=== PATIENT | female | born 1965 | race Caucasian/White ===

== ENCOUNTER 2019-06-06 10:04 | Emergency (ER) | payer OTHER, SELFPAY ==
--- NOTE | 2019-06-06 10:30 | EDPHYS ---
Physician Documentation [facility] Name: Chela Magana Age: 53 yrs Sex: Female : 1965 Arrival Date: 06/06/2019 Time: 10:07 Bed 6 Private MD: ED Physician Amado Mcgrath HPI: 06/06 10:26 This 53 yrs old Female presents to ER via Ambulatory with complaints of Cough.jmm 10:26 The patient or guardian reports cough, described as moderate. Onset: The jm symptoms/episode began/occurred gradually, 2 week(s) ago. Modifying factors: The symptoms are alleviated by nothing, the symptoms are aggravated by nothing. Associated signs and symptoms: Pertinent positives: sore throat, Pertinent negatives: fever. This is a 53 year old female with a history of htn that presents ot the ED with complaints of cough beginning 1 week ago. Patient states having sinus congestion ongoing for 2 weeks. Patient denies fever but complains of body aches and chills. has similar symptoms. . 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 - Coronavirus screen:: The patient has NOT traveled to [place] in the past 14 days. The patient has NOT had contact with known/suspected case of Coronavirus? Proceed with normal triage procedures. - Social history:: Smoking status: unknown. - Ebola Screening: : No symptoms or risks identified at this time. ROS: 10:26 Constitutional: Positive for body aches, chills. jmm 10:26 ENT: Positive for sore throat. 10:26 Respiratory: Positive for cough. 10:26 All other systems are negative. Exam: 10:26 Constitutional: This is a well developed, well nourished patient who is awake, alert, jmm and in no acute distress. Head/Face: atraumatic. Eyes: EOMI, no conjunctival erythema appreciated 10:26 Neck: Trachea midline, Supple Chest/axilla: Normal chest wall appearance and motion. 10:26 Abdomen/GI: Non distended, soft Back: Normal ROM Skin: General appearance color normal MS/ Extremity: Moves all extremities, no obvious deformities appreciated, no edema noted to the lower extremities Neuro: Awake and alert, normal gait Psych: Behavior is normal, Mood is normal, Patient is cooperative and pleasant 10:26 ENT: TM's: are normal, Posterior pharynx: erythema, that is mild, post nasal drip. 10:26 Cardiovascular: Rate: normal, Rhythm: regular, Pulses: no pulse deficits are appreciated. 10:26 Respiratory: the patient does not display signs of respiratory distress, Respirations: normal, Breath sounds: are clear throughout. Vital Signs: 10:19 BP 142 / 84; Pulse 84; Resp 16; Temp 98.7; Pulse Ox 99% ; Weight 88.45 kg; Height 5 ft. bp 2 in. (157.48 cm); 10:49 BP 130 / 73; Pulse 81; Resp 17; Temp 98; Pulse Ox 97% ; bp 10:19 Body Mass Index 35.67 (88.45 kg, 157.48 cm) bp MDM: 10:25 Patient medically screened. [facility] 10:28 Data reviewed: vital signs, nurses notes. Counseling: I had a detailed discussion with daniel the patient and/or guardian regarding: the historical points, exam findings, and any diagnostic results supporting the discharge/admit diagnosis, the need for outpatient follow up, to return to the emergency department if symptoms worsen or persist or if there are any questions or concerns that arise at home. ED course: Patient is alert and non toxic in appearance in the ED. No signs of resp distress. Most likely viral syndrome. patient advised to follow up with pcp and otherwise given strict return precautions. patient understood and agrees with the plan of care. . Administered Medications: 10:35 Drug: Decadron 10 mg Route: IM; Site: right gluteus; bp 10:48 Follow up: Response: No adverse reaction bp Disposition: 11:01 Co-signature as Attending Physician, Amado Mcgrath MD. rn Disposition: 06/06/19 10:29 Discharged to Home. Impression: Acute upper respiratory infection, unspecified. - Condition is Stable. - Discharge Instructions: Upper Respiratory Infection, Adult. - Prescriptions for Bromfed DM 2- 30-10 mg/5 mL Oral syrup - take 10 milliliter by ORAL route every 4 hours; 1 bottle. Prednisone 20 mg Oral Tablet - take 3 tablet by ORAL route once daily for 5 days; 15 tablet. - Medication Reconciliation Form, Thank You Letter, Antibiotic Education, Prescription Opioid Use, Work release form form. - Follow up: Private Physician; When: 2 - 3 days; Reason: Recheck today's complaints, Continuance of care, Re-evaluation by your physician. Signatures: José Abraham PA PA jmm Nieto, Roman, MD MD rn DonnaMohamud RN RN bp Corrections: (The following items were deleted from the chart) 10:50 10:29 06/06/2019 10:29 Discharged to Home. Impression: Acute upper respiratory bp infection, unspecified. Condition is Stable. Forms are Medication Reconciliation Form, Thank You Letter, Antibiotic Education, Prescription Opioid Use. Follow up: Private Physician; When: 2 - 3 days; Reason: Recheck today's complaints, Continuance of care, Re-evaluation by your physician. daniel
--- NOTE | 2019-06-06 10:30 | ER ---
Nurse's Notes [facility] Name: Chela Magana Age: 53 yrs Sex: Female : 1965 Arrival Date: 06/06/2019 Time: 10:07 Bed 6 Private MD: Diagnosis: Acute upper respiratory infection, unspecified Presentation: 06/06 10:18 Presenting complaint: Patient states: COUGH, COLD, CONGESTION x2 WK. Transition of bp care: patient was not received from another setting of care. Onset of symptoms is unknown. Risk Assessment: Do you want to hurt yourself or someone else? Patient reports no desire to harm self or others. Initial Sepsis Screen: Does the patient meet any 2 criteria? No. Patient's initial sepsis screen is negative. Does the patient have a suspected source of infection? No. Patient's initial sepsis screen is negative. Care prior to arrival: None. 10:18 Method Of Arrival: Ambulatory bp 10:18 Acuity: NESS 4 bp Triage Assessment: 10:19 General: Appears in no apparent distress. comfortable, obese, Behavior is calm, bp cooperative, appropriate for age. Pain: Denies pain. EENT: No deficits noted. Neuro: No deficits noted. Cardiovascular: No deficits noted. Respiratory: Airway is patent Respiratory effort is even, unlabored, Respiratory pattern is regular, symmetrical. Respiratory: Reports cough that is. GI: No signs and/or symptoms were reported involving the gastrointestinal system. : No signs and/or symptoms were reported regarding the genitourinary system. Derm: No deficits noted. Musculoskeletal: No deficits noted. 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 - Coronavirus screen:: The patient has NOT traveled to [place] in the past 14 days. The patient has NOT had contact with known/suspected case of Coronavirus? Proceed with normal triage procedures. - Social history:: Smoking status: unknown. - Ebola Screening: : No symptoms or risks identified at this time. Screenin:21 Abuse screen: Denies threats or abuse. Denies injuries from another. Nutritional bp screening: No deficits noted. Tuberculosis screening: No symptoms or risk factors identified. Fall Risk None identified. Assessment: 10:21 General: SEE TRIAGE NOTE. bp 10:49 Reassessment: PT D/C HOME AMBULATORY, DX WITH ACUTE URI. bp Vital Signs: 10:19 BP 142 / 84; Pulse 84; Resp 16; Temp 98.7; Pulse Ox 99% ; Weight 88.45 kg; Height 5 ft. bp 2 in. (157.48 cm); 10:49 BP 130 / 73; Pulse 81; Resp 17; Temp 98; Pulse Ox 97% ; bp 10:19 Body Mass Index 35.67 (88.45 kg, 157.48 cm) bp ED Course: 10:07 Patient arrived in ED. as 10:09 José Abraham PA is PHCP. daniel 10:09 Amado Mcgrath MD is Attending Physician. [facility] 10:18 Mohamud Thompson, RN is Primary Nurse. bp 10:19 Triage completed. bp 10:19 Arm band placed on. bp 10:21 Patient has correct armband on for positive identification. Bed in low position. Call bp light in reach. Side rails up X2. 10:49 No provider procedures requiring assistance completed. Patient did not have IV access bp during this emergency room visit. Administered Medications: 10:35 Drug: Decadron 10 mg Route: IM; Site: right gluteus; bp 10:48 Follow up: Response: No adverse reaction bp Outcome: 10:29 Discharge ordered by . jmm 10:49 Discharged to home ambulatory. bp 10:49 Condition: stable 10:49 Discharge instructions given to patient, Instructed on discharge instructions, follow up and referral plans. medication usage, Demonstrated understanding of instructions, follow-up care, medications, Prescriptions given X 3. 10:50 Patient left the ED. bp Signatures: José Abraham PA PA Maki Ochoa as Mohamud Thompson, RN RN bp
[2019-06-06] MEDS ORDERED: dexAMETHasone 4 MG/ML VIAL ONE (10:42)
[2019-06-06 11:18] VITALS: BP 130/73; TEMP 98; O2SAT 97
== END 2019-06-06 10:50 | disposition home or self-care (01) ==
LOC: ER 10:04
DX: J06.9 Acute upper respiratory infection, unspecified (principal); I10 Essential (primary) hypertension; Z88.5 Allergy status to narcotic agent
CPT/HCPCS: 96372; 99283

== ENCOUNTER 2020-01-19 18:57 | Emergency (ER) | payer OTHER, SELFPAY ==
--- NOTE | 2020-01-19 19:37 | ER ---
Nurse's Notes [facility] Name: Chela Magana Age: 54 yrs Sex: Female : 1965 Arrival Date: 01/19/2020 Time: 18:59 Bed 23 Private MD: Jimmie Trimble H Diagnosis: Allergic rhinitis, unspecified Presentation: 01/18 19:19 Chief complaint: Patient states: Allergy symptoms x 5 days. Watery and itchy eyes, ca1 sneezing, runny nose, nasal congestion. States, "my doctor gives me cortisone shot every year and it will make me feel better". Coronavirus screen: Client denies travel out of the [place] in the last 14 days. congestion, runny nose, Client presents with at least one sign or symptom that may indicate coronavirus-19. Standard/surgical mask placed on the client. Provider contacted for isolation considerations. Ebola Screen: Patient negative for fever greater than or equal to 101.5 degrees Fahrenheit, and additional compatible Ebola Virus Disease symptoms Patient denies exposure to infectious person. Patient denies travel to an Ebola-affected area in the 21 days before illness onset. No symptoms or risks identified at this time. Initial Sepsis Screen: Does the patient meet any 2 criteria? No. Patient's initial sepsis screen is negative. Does the patient have a suspected source of infection? No. Patient's initial sepsis screen is negative. Risk Assessment: Do you want to hurt yourself or someone else? Patient reports no desire to harm self or others. Onset of symptoms was January 19, 2020. 19:19 Method Of Arrival: Ambulatory ca1 19:19 Acuity: NESS 4 ca1 19:40 Onset: The symptoms/episode began/occurred gradually. Anaphylaxis evaluation, no signs sg or symptoms of anaphylaxis were noted. 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 - Social history:: Smoking status: Patient/guardian denies using tobacco, Stopped _ months ago 2. Screenin:31 Abuse screen: Denies threats or abuse. Denies injuries from another. Nutritional ca1 screening: No deficits noted. Tuberculosis screening: No symptoms or risk factors identified. Fall Risk None identified. Assessment: 19:31 General: Appears in no apparent distress. comfortable, Behavior is calm, cooperative, ca1 appropriate for age. Pain: Denies pain. Neuro: Level of Consciousness is awake, alert, obeys commands, Oriented to person, place, time, situation. Respiratory: Airway is patent Respiratory effort is even, unlabored, Breath sounds are clear bilaterally. EENT: Reports nasal congestion nasal discharge that is watery. Derm: Skin is intact, is healthy with good turgor, Skin is pink, warm \\T\\ dry. Musculoskeletal: Circulation, motion, and sensation intact. Capillary refill < 3 seconds. Vital Signs: 19:19 BP 143 / 104; Pulse 84; Resp 18 S; Temp 97.4(TE); Pulse Ox 99% on R/A; Weight 84.37 kg ca1 (R); Height 5 ft. 2 in. (157.48 cm) (R); 19:31 BP 146 / 99; ca1 19:19 Body Mass Index 34.02 (84.37 kg, 157.48 cm) ca1 ED Course: 18:59 Patient arrived in ED. ag5 18:59 Jimmie Trimble DO is Private Physician. ag5 19:20 Griffin Fournier MD is Attending Physician. tw4 19:21 Triage completed. ca1 19:23 Arm band placed on right wrist. ca1 19:31 Patient has correct armband on for positive identification. ca1 19:35 Svetlana Ni, LALO is Primary Nurse. ca1 19:36 Jimmie Trimble DO is Referral Physician. tw4 19:40 No provider procedures requiring assistance completed. Patient did not have IV access sg during this emergency room visit. Administered Medications: 19:35 Drug: SOLU-Medrol 60 mg Route: IM; Site: right gluteus; ca1 Outcome: 19:37 Discharge ordered by . tw4 19:40 Discharged to home ambulatory, with family. sg 19:40 Condition: good 19:40 Discharge instructions given to patient, family, Instructed on discharge instructions, follow up and referral plans. medication usage, safety practices, Demonstrated understanding of instructions, follow-up care, medications, Prescriptions given X 2. 19:46 Patient left the ED. iw Signatures: Fernie Guzman RN RN Zainab Horta RN RN Griffin Fournier MD MD tw4 Svetlana Ni RN RN ca1 Angie, Jessy ag5 Corrections: (The following items were deleted from the chart) 19:25 19:19 Chief complaint: Patient states: Allergy symptoms x 5 days. Watery and itchy ca1 eyes, sneezing, runny nose, nasal congestion, ca1 19:47 16:40 Discharged to home ambulatory, with family, [facility] 16:40 Condition: good [facility] :47 16:40 Discharge instructions given to patient, family, Instructed on discharge instructions, follow up and referral plans. medication usage, safety practices, Demonstrated understanding of instructions, follow-up care, medications, Prescriptions given X 2, iw
--- NOTE | 2020-01-19 19:37 | EDPHYS ---
Physician Documentation [facility] Name: Chela Magana Age: 54 yrs Sex: Female : 1965 Arrival Date: 01/19/2020 Time: 18:59 Bed 23 Private MD: Jimmie Trimble H ED Physician Griffin Fournier HPI: 01/19 06:57 This 54 yrs old Female presents to ER via Ambulatory with complaints of tw4 Allergy Symptoms. 06:57 The patient or guardian reports watery eyes itching. Onset: The symptoms/episode tw4 began/occurred 1 week(s) ago. Severity of symptoms: At their worst the symptoms were moderate, in the emergency department the symptoms are unchanged. Modifying factors: The symptoms are alleviated by nothing, the symptoms are aggravated by nothing. The patient has not experienced similar symptoms in the past. 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 - Social history:: Smoking status: Patient/guardian denies using tobacco, Stopped _ months ago 2. ROS: 01/19 06:57 Constitutional: Negative for fever, chills, and weight loss. tw4 Eyes: Negative for injury, pain, redness, and discharge, Cardiovascular: Negative for chest pain, palpitations, and edema, Respiratory: Negative for shortness of breath, cough, wheezing, and pleuritic chest pain, Abdomen/GI: Negative for abdominal pain, nausea, vomiting, diarrhea, and constipation, Back: Negative for injury and pain, : Negative for injury, bleeding, discharge, and swelling, MS/Extremity: Negative for injury and deformity, Skin: Negative for injury, rash, and discoloration. ENT: Positive for nasal discharge, rhinorrhea. Exam: 06:57 Constitutional: This is a well developed, well nourished patient who is awake, alert, tw4 and in no acute distress. Head/Face: Normocephalic, atraumatic. Chest/axilla: Normal chest wall appearance and motion. Nontender with no deformity. No lesions are appreciated. Cardiovascular: Regular rate and rhythm with a normal S1 and S2. No gallops, murmurs, or rubs. Normal PMI, no JVD. No pulse deficits. Respiratory: Lungs have equal breath sounds bilaterally, clear to auscultation and percussion. No rales, rhonchi or wheezes noted. No increased work of breathing, no retractions or nasal flaring. Abdomen/GI: Soft, non-tender, with normal bowel sounds. No distension or tympany. No guarding or rebound. No evidence of tenderness throughout. Back: No spinal tenderness. No costovertebral tenderness. Full range of motion. Skin: Warm, dry with normal turgor. Normal color with no rashes, no lesions, and no evidence of cellulitis. MS/ Extremity: Pulses equal, no cyanosis. Neurovascular intact. Full, normal range of motion. Neuro: Awake and alert, GCS 15, oriented to person, place, time, and situation. Cranial nerves II-XII grossly intact. Motor strength 5/5 in all extremities. Sensory grossly intact. Cerebellar exam normal. Normal gait. Vital Signs: 01/18 19:19 BP 143 / 104; Pulse 84; Resp 18 S; Temp 97.4(TE); Pulse Ox 99% on R/A; Weight 84.37 kg ca1 (R); Height 5 ft. 2 in. (157.48 cm) (R); 19:31 BP 146 / 99; ca1 19:19 Body Mass Index 34.02 (84.37 kg, 157.48 cm) ca1 MDM: 19:34 Patient medically screened. tw4 01/19 06:57 Differential Diagnosis: Obstructed Airway Bronchitis Influenza Upper Respiratory tw4 Infection. Data reviewed: vital signs, nurses notes. Data interpreted: Pulse oximetry:. Counseling: I had a detailed discussion with the patient and/or guardian regarding: the historical points, exam findings, and any diagnostic results supporting the discharge/admit diagnosis. Special discussion: I discussed with the patient/guardian in detail that at this point there is no indication for admission to the hospital. It is understood, however, that if the symptoms persist or worsen the patient needs to return immediately for re-evaluation. Administered Medications: 01/18 19:35 Drug: SOLU-Medrol 60 mg Route: IM; Site: right gluteus; ca1 Disposition: 01/19/20 19:37 Discharged to Home. Impression: Allergic rhinitis, unspecified. - Condition is Stable. - Discharge Instructions: Allergies, Adult, Nasal Allergies, Allergies, [id number]. - Prescriptions for Sylvie- D 12 Hour 60-120 mg Oral Tablet Sustained Release 12 hr - take 1 tablet by ORAL route every 12 hours As needed; 30 tablet. Medrol (Anival) 4 mg Oral Tablets, Dose Pack - take 1 tablet by ORAL route as directed - follow package instructions; 1 packet. - Medication Reconciliation Form, Thank You Letter, Antibiotic Education, Prescription Opioid Use form. - Follow up: Jimmie Trimble DO; When: Upon discharge from the Emergency Department; Reason: Recheck today's complaints, Continuance of care, Re-evaluation by your physician. - Problem is new. - Symptoms have improved. Signatures: Zainab Horta RN RN iw Griffin Fournier MD MD tw4 Svetlana Ni RN RN ca1 Corrections: (The following items were deleted from the chart) 19:46 19:37 01/19/2020 19:37 Discharged to Home. Impression: Allergic rhinitis, unspecified. iw Condition is Stable. Forms are Medication Reconciliation Form, Thank You Letter, Antibiotic Education, Prescription Opioid Use. Follow up: Jimmie Trimble; When: Upon discharge from the Emergency Department; Reason: Recheck today's complaints, Continuance of care, Re-evaluation by your physician. Problem is new. Symptoms have improved. tw4
[2020-01-19 20:22] VITALS: TEMP 97.4; O2SAT 99
[2020-01-19 20:24] VITALS: BP 146/99
--- OUTSIDE RECORDS SUMMARY | 2020-01-20 22:34 | XMS REPORT | Continuity of Care Document ---
:1965 Author Organization [employer] Care Team Providers Name Role Phone [employer] Unavailable Un available Problems Problem Status Onset Classification Date Comments Sourc e Date Reported ANA CARPAL Active [facility] 7 [facility] Medications No Data Provided for This Section Allergies, Adverse Reactions, Alerts No Known Medication Allergies Immunizations No Data Provided for This Section Results No Data Provided for This Section Pathology Reports No Data Provided for This Section Diagnostic Reports No Data Provided for This Section Consultation Notes No Data Provided for This Section Discharge Summaries No Data Provided for This Section History and Physicals No Data Provided for This Section Vital Signs No Data Provided for This Section Encounters Location Location Encounter Encounter Reason Attending ADM DC Stat us Source Details Type Number For Provider Date Date Visit [facility] OP Therapy [id number] Brian 11/12 12/12 [facility] Patients /2016 [facility] Procedures No Data Provided for This Section Assessment and Plan No Data Provided for This Section Plan of Care No Data Provided for This Section Social History Social History Date Source No data available for this 12/12/2016 [facility] section Family History No Data Provided for This Section Advance Directives No Data Provided for This Section Functional Status No Data Provided for This Section
== END 2020-01-19 19:46 | disposition home or self-care (01) ==
LOC: ER 18:57
DX: J30.9 Allergic rhinitis, unspecified (principal); I10 Essential (primary) hypertension; Z88.5 Allergy status to narcotic agent; Z87.891 Personal history of nicotine dependence
CPT/HCPCS: 96372; 99283

== ENCOUNTER 2020-03-22 17:04 | Observation (INO) | payer OTHER ==
[2020-03-22 20:45] LABS: Absolute Lymphocytes (CBC) 2.9 K/uL (0.7-4.9); Basophils % 0.6 % (0-1.3); Lymphocytes % 30.2 % (15.3-44.8); MPV 8.1 fL (7.6-11.3); RBC Red Blood Cell Count 4.82 M/uL (3.86-4.86)
--- NOTE | 2020-03-22 20:49 | RAD REPORT ---
EXAM DESCRIPTION: RAD - Chest Single View - 03/22/2020 8:05 pm CLINICAL HISTORY: CHEST PAIN Chest pain. COMPARISON: Abdomen Pelvis W Contrast dated 11/19/2019; Abdomen Pelvis W Contrast dated 10/17/2019; Abdomen Pelvis W Contrast dated 09/27/2019; Abdomen Pelvis W Contrast dated 08/10/2019No comparison s FINDINGS: Portable technique limits examination quality. The lungs are grossly clear. The heart is normal in size. No displaced fractures. IMPRESSION: No acute intrathoracic process suspected.
[2020-03-22 21:13] LABS: Bilirubin Direct 0.2 mg/dL (0-0.2); Bilirubin Total 0.7 mg/dL (0.2-1.0); Potassium 3.8 mmol/L (3.5-5.1); Protein, Total 7.6 g/dL (6.4-8.2)
--- OUTSIDE RECORDS SUMMARY | 2020-03-22 21:23 | XMS REPORT | Continuity of Care Document ---
:1965 Author Organization [employer] Care Team Providers Name Role Phone [employer] Unavailable Un available Problems Problem Status Onset Classification Date Comments Sourc e Date Reported ANA CARPAL Active [facility] Medications No Data Provided for This Section [...] Type Number For Provider Date Date Visit [facility] OP Therapy [id number] Brian 11/12 12/12 [facility] Patients /2016 [facility] Procedures No Data Provided for This Section Assessment and Plan No Data Provided for This Section Plan of Care No Data Provided for This Section Social History Social History Date Source No data available for this 12/12/2016 [facility] section Family History No Data Provided for This Section Advance Directives No Data Provided for This Section Functional Status No Data Provided for This Section
--- NOTE | 2020-03-22 21:37 | EDPHYS ---
Physician Documentation [facility] Name: Chela Magana Age: 54 yrs Sex: Female : 1965 Arrival Date: 03/22/2020 Time: 17:06 Bed 20 Private MD: ED Physician Amado Mcgrath HPI: 03/22 19:35 This 54 yrs old Female presents to ER via Ambulatory with complaints of Chest rn Pain. 19:35 The patient or guardian reports chest pain that is located primarily in the substernal rn area. Onset: 6 hour(s) ago. The pain radiates to Associated signs and symptoms: Pertinent negatives: abdominal pain, headache, shortness of breath, syncope, vomiting. The chest pain is described as aching, a heaviness. Duration: The patient or guardian reports multiple episodes, that are intermittent. Modifying factors: The symptoms are alleviated by nothing. the symptoms are aggravated by nothing. Severity of pain: At its worst the pain was moderate in the emergency department the pain has improved. The patient has experienced a previous episode. The patient has not recently seen a physician. Reports at work, chest heaviness when walking, moderate for 20-25 min, then got better, + radiation to neck and back, got better, now coming back. Has had chest pain before, but no evaluation. No abd pain/nausea/vomiting/diarrhea. No trauma. Does not feel ill. No cough.. Historical: - Allergies: 17:25 Codeine; iw - Home Meds: 17:25 valsartan oral oral once daily [Active]; iw - PMHx: 17:25 Hypertension; iw - PSHx: 17:25 Cholecystectomy; iw - Immunization history:: Adult Immunizations not up to date. - Social history:: Smoking status: Patient/guardian denies using tobacco, Stopped _ months ago 5. - Family history:: not pertinent. - Hospitalizations: : No recent hospitalization is reported. ROS: 19:35 Constitutional: Negative for fever, chills, and weight loss, Eyes: Negative for injury, rn pain, redness, and discharge, Neck: Negative for injury, pain, and swelling, Cardiovascular: Negative for palpitations, and edema, Respiratory: Negative for shortness of breath, cough, wheezing, and pleuritic chest pain, Abdomen/GI: Negative for abdominal pain, nausea, vomiting, diarrhea, and constipation, Back: Negative for injury MS/Extremity: Negative for injury and deformity, Skin: Negative for injury, rash, and discoloration, Neuro: Negative for headache, weakness, numbness, tingling, and seizure. Exam: 19:35 Constitutional: This is a well developed, well nourished patient who is awake, alert, rn and in no acute distress. Head/Face: Normocephalic, atraumatic. Cardiovascular: Regular rate and rhythm. No pulse deficits. Respiratory: No increased work of breathing, no retractions or nasal flaring. Abdomen/GI: soft, non-tender, neg escamilla Skin: Warm, dry MS/ Extremity: Pulses equal, no cyanosis. Equal circumference. Neuro: Awake and alert, GCS 15 Vital Signs: 17:22 BP 132 / 88; Pulse 79; Resp 16; Temp 97.8; Pulse Ox 99% on R/A; Weight 84.37 kg; Height iw 5 ft. 2 in. (157.48 cm); Pain 1/10; 19:45 Pulse 82; Resp 18; Pulse Ox 99% ; aj1 20:24 BP 111 / 67; Pulse 80; Resp 18; Pulse Ox 98% on R/A; aj1 21:06 BP 113 / 68; Pulse 81; Resp 15; Pulse Ox 98% on R/A; aj1 22:10 BP 115 / 69; Pulse 77; Resp 18; Pulse Ox 99% on R/A; aj1 23:30 BP 125 / 87; Pulse 82; Resp 18; Pulse Ox 100% on R/A; aj1 12 04:41 BP 129 / 78; Pulse 70; Resp 20; Temp 99.0(TE); Pulse Ox 99% ; Pain 0/10; ds4 03/22 17:22 Body Mass Index 34.02 (84.37 kg, 157.48 cm) iw MDM: 03/22 19:27 Patient medically screened. rn 21:35 Differential diagnosis: acute myocardial infarction, acute pericarditis, anxiety, rn coronary artery disease chest wall pain, costochondritis, gastroesophageal reflux disease (GERD), pleurisy, pneumothorax, stable angina, unstable angina. The patient was given aspirin in the Emergency Department. Data reviewed: vital signs, nurses notes, lab test result(s), EKG, radiologic studies, plain films, and as a result, I will admit patient. Counseling: I had a detailed discussion with the patient and/or guardian regarding: the historical points, exam findings, and any diagnostic results supporting the discharge/admit diagnosis, lab results, radiology results, the need for further work-up and treatment in the hospital. Response to treatment: the patient's symptoms have mildly improved after treatment, and as a result, I will admit patient. Admission orders: after a detailed discussion of the patient's condition and case, the admit orders are written by me. ED course: Trop neg, no ischemia on ECG, no cardiac w/u, will admit for cardiac w/u. Aspirin given in ED.. 03/22 19:34 Order name: Basic Metabolic Panel; Complete Time: 21:42 rn 03/22 19:34 Order name: CBC with Diff rn 03/22 19:34 Order name: LFT's rn 03/22 19:34 Order name: NT PRO-BNP rn 03/22 19:34 Order name: Troponin (emerg Dept Use Only) rn 03/22 20:53 Order name: CBC with Automated Diff; Complete Time: 21:01 [facility] 03/22 21:13 Order name: Liver (Hepatic) Function; Complete Time: 21:42 [facility] 03/22 21:13 Order name: NT PRO-BNP; Complete Time: 21:42 [facility] 03/22 21:16 Order name: Troponin (Emerg Dept Use Only); Complete Time: 21:42 [facility] 03/23 03:52 Order name: Troponin I [facility] 03/23 04:00 Order name: Basic Metabolic Panel [facility] 03/23 04:00 Order name: Lipid Profile [facility] 03/23 04:00 Order name: T4 Free [facility] 03/23 04:00 Order name: Magnesium [facility] 03/22 19:34 Order name: XRAY Chest (1 view); Complete Time: 20:51 rn 03/22 19:34 Order name: EKG; Complete Time: 19:35 rn 03/22 19:34 Order name: Cardiac monitoring; Complete Time: 20:00 rn 03/22 19:34 Order name: EKG - Nurse/Tech; Complete Time: 20:00 rn 03/22 19:34 Order name: IV Saline Lock; Complete Time: 20:23 rn 03/22 19:34 Order name: Labs collected and sent; Complete Time: 20:23 rn 03/22 19:34 Order name: O2 Per Protocol; Complete Time: 20:00 rn 03/22 19:34 Order name: O2 Sat Monitoring; Complete Time: 20:01 rn 03/23 04:00 Order name: Thyroid Stimulating Hormone [facility] 03/23 04:04 Order name: CBC with Automated Diff EDMS Administered Medications: 21:44 Drug: Aspirin Chewable Tablet 324 mg Route: PO; aj1 21:44 Drug: Nitroglycerin 0.4 mg Route: Sublingual; aj1 Disposition: 03/22/20 21:37 Hospitalization ordered by Garrick Romero for Observation. Preliminary diagnosis is Chest pain, unspecified. - Bed requested for Telemetry/MedSurg (observation). - Status is Observation. ph - Condition is Stable. - Problem is new. - Symptoms have improved. Signatures: Dispatcher [employer] EDMS Mirlande Parham RN RN aj1 Zainab Horta RN RN iw Amado Mcgrath MD MD rn Lasagna, Tonya, RN RN tl1 Stephanie Whitten RN RN ph Corrections: (The following items were deleted from the chart) 23:05 21:37 Hospitalization Ordered by Garrick Romero DO for Observation. Preliminary tl1 diagnosis is Chest pain, unspecified. Bed requested for Telemetry/MedSurg (observation). Status is Observation. Condition is Stable. Problem is new. Symptoms have improved. rn 03/23 06:15 12 23:05 03/22/2020 21:37 Hospitalization Ordered by Garrick Romero DO for tl1 Observation. Preliminary diagnosis is Chest pain, unspecified. Bed requested for [facility] ER HOLD. Status is Observation. Condition is Stable. Problem is new. Symptoms have improved. tl1 03/23 07:49 06:15 03/22/2020 21:37 Hospitalization Ordered by Garrick Romero DO for Observation. ph Preliminary diagnosis is Chest pain, unspecified. Bed requested for Telemetry/MedSurg (observation). Status is Observation. Condition is Stable. Problem is new. Symptoms have improved. tl1
--- NOTE | 2020-03-22 21:37 | ER ---
Nurse's Notes [facility] Name: Chela Magana Age: 54 yrs Sex: Female : 1965 Arrival Date: 03/22/2020 Time: 17:06 Bed 20 Private MD: Diagnosis: Chest pain, unspecified Presentation: 03/22 17:22 Chief complaint: Patient states: midsternal chest pain started around 130 today , went iw all the way through my back and up side of neck, still having dull pain but was very intense for about 20-25 minutes, no cardiac hx , denies fever, cough, or SOB, no nausea or vomiting. Coronavirus screen: At this time, the client does not indicate any symptoms associated with coronavirus-19. Ebola Screen: Patient negative for fever greater than or equal to 101.5 degrees Fahrenheit, and additional compatible Ebola Virus Disease symptoms Patient denies exposure to infectious person. Patient denies travel to an Ebola-affected area in the 21 days before illness onset. No symptoms or risks identified at this time. Initial Sepsis Screen: Does the patient meet any 2 criteria? No. Patient's initial sepsis screen is negative. Does the patient have a suspected source of infection? No. Patient's initial sepsis screen is negative. Risk Assessment: Do you want to hurt yourself or someone else? Patient reports no desire to harm self or others. Onset of symptoms was March 22, 2020. 17:22 Method Of Arrival: Ambulatory iw 17:22 Acuity: NESS 3 iw Historical: - Allergies: 17:25 Codeine; iw - Home Meds: 17:25 valsartan oral oral once daily [Active]; iw - PMHx: 17:25 Hypertension; iw - PSHx: 17:25 Cholecystectomy; iw - Immunization history:: Adult Immunizations not up to date. - Social history:: Smoking status: Patient/guardian denies using tobacco, Stopped _ months ago 5. - Family history:: not pertinent. - Hospitalizations: : No recent hospitalization is reported. Screenin:46 Abuse screen: Denies threats or abuse. Denies injuries from another. Nutritional aj1 screening: No deficits noted. Tuberculosis screening: No symptoms or risk factors identified. Fall Risk No fall in past 12 months (0 pts). No secondary diagnosis (0 pts). IV access (20 points). Ambulatory Aid- None/Bed Rest/Nurse Assist (0 pts). Gait- Normal/Bed Rest/Wheelchair (0 pts) Mental Status- Oriented to own ability (0 pts). Total Sommer Fall Scale indicates No Risk (0-24 pts). Assessment: 19:45 General: Appears in no apparent distress. uncomfortable, Behavior is calm, cooperative, aj1 appropriate for age. Pain: Complains of pain in mid-sternal area Pain radiates to back Pain currently is 7 out of 10 on a pain scale. Pain began 6 hours ago. Neuro: Level of Consciousness is awake, alert, obeys commands, Oriented to person, place, time, situation. Cardiovascular: Reports chest pain, Denies diaphoresis, palpitations, shortness of breath, syncope, Heart tones S1 S2 present Patient's skin is warm and dry. Rhythm is sinus rhythm. Respiratory: Airway is patent Respiratory effort is even, unlabored, Respiratory pattern is regular, symmetrical, Breath sounds are clear bilaterally. GI: No signs and/or symptoms were reported involving the gastrointestinal system. : No signs and/or symptoms were reported regarding the genitourinary system. EENT: No signs and/or symptoms were reported regarding the EENT system. Derm: No signs and/or symptoms reported regarding the dermatologic system. Skin is pink, warm \T\ dry. normal. Musculoskeletal: No signs and/or symptoms reported regarding the musculoskeletal system. Circulation, motion, and sensation intact. 20:24 Reassessment: Patient appears in no apparent distress at this time. No changes from aj1 previously documented assessment. Patient and/or family updated on plan of care and expected duration. Pain level reassessed. Patient is alert, oriented x 3, equal unlabored respirations, skin warm/dry/pink. 21:06 Reassessment: Patient appears in no apparent distress at this time. No changes from aj1 previously documented assessment. Patient and/or family updated on plan of care and expected duration. Pain level reassessed. Patient is alert, oriented x 3, equal unlabored respirations, skin warm/dry/pink. 22:23 Reassessment: Patient appears in no apparent distress at this time. No changes from aj1 previously documented assessment. Patient and/or family updated on plan of care and expected duration. Pain level reassessed. Patient is alert, oriented x 3, equal unlabored respirations, skin warm/dry/pink. 23:45 Reassessment: Patient appears in no apparent distress at this time. No changes from aj1 previously documented assessment. Patient and/or family updated on plan of care and expected duration. Pain level reassessed. Patient is alert, oriented x 3, equal unlabored respirations, skin warm/dry/pink. Vital Signs: 17:22 BP 132 / 88; Pulse 79; Resp 16; Temp 97.8; Pulse Ox 99% on R/A; Weight 84.37 kg; Height iw 5 ft. 2 in. (157.48 cm); Pain 1/10; 19:45 Pulse 82; Resp 18; Pulse Ox 99% ; aj1 20:24 BP 111 / 67; Pulse 80; Resp 18; Pulse Ox 98% on R/A; aj1 21:06 BP 113 / 68; Pulse 81; Resp 15; Pulse Ox 98% on R/A; aj1 22:10 BP 115 / 69; Pulse 77; Resp 18; Pulse Ox 99% on R/A; aj1 23:30 BP 125 / 87; Pulse 82; Resp 18; Pulse Ox 100% on R/A; aj1 12 04:41 BP 129 / 78; Pulse 70; Resp 20; Temp 99.0(TE); Pulse Ox 99% ; Pain 0/10; ds4 12 17:22 Body Mass Index 34.02 (84.37 kg, 157.48 cm) iw ED Course: 03/22 17:06 Patient arrived in ED. iw 17:24 Triage completed. iw 17:25 Arm band placed on. iw 19:26 Mirlande Parham, RN is Primary Nurse. aj1 19:27 Amado Mcgrath MD is Attending Physician. rn 19:30 Patient has correct armband on for positive identification. lab technician on. Pulse aj1 ox on. NIBP on. 20:05 XRAY Chest (1 view) In Process Unspecified. EDMS 20:23 Inserted saline lock: 20 gauge in right upper arm, using aseptic technique. Blood aj1 collected. 21:36 Garrick Romero DO is Hospitalizing Provider. rn 23:47 No provider procedures requiring assistance completed. Patient admitted, IV remains in aj1 place. Patient maintains SpO2 saturation greater than 95% on room air. Administered Medications: 21:44 Drug: Aspirin Chewable Tablet 324 mg Route: PO; aj1 21:44 Drug: Nitroglycerin 0.4 mg Route: Sublingual; aj1 Outcome: 21:37 Decision to Hospitalize by Provider. rn 23:47 Admitted to ER Hold. Please see [facility] for further documentation. aj1 23:47 Condition: good 23:47 Discharge instructions given to patient, Instructed on the need for admit, Demonstrated understanding of instructions. 03/23 07:49 Patient left the ED. ph Signatures: Dispatcher [employer] EDMirlande Avery RN RN aj1 Zainab Horta RN RN Amado Mcgrath MD MD rn Swanson, Donovan ds4 Stephanie Whitten RN RN ph
[2020-03-22] MEDS ORDERED: NITROGLYCERIN 0.4 MG/TAB SL ONE (21:50)
[2020-03-22] MEDS ORDERED: ASPIRIN EC 81 MG TAB PO ONE (21:50)
--- NOTE | 2020-03-23 00:33 | P.HP ---
Certification for Inpatient Patient admitted to: Observation With expected LOS: <2 Midnights Patient will require the following post-hospital care: None Practitioner: I am a practitioner with admitting privileges, knowledge of patient current condition, hospital course, and medical plan of care. Services: Services provided to patient in accordance with Admission requirements found in Title 42 Section 412.3 of the Code of Federal Regulations <Jayy León - Last Filed: 03/23/20 00:30> Patient admitted to: Observation <Garrick Romero - Last Filed: 03/23/20 12:28> Patient History Date of Service: 03/23/20 Primary Care Provider: Dr. Trimble Reason for admission: Chest pain History of Present Illness: 54-year-old female with history of hypertension, tobacco abuse with recent cessation presents emergency department for chest pain. Patient reports that she is having heavy chest pain radiating to her back and neck, pain occurred while walking to the restroom and was rated at a 10/10 at its worse. Pain lasted for approximately 25 min. Patient has never had cardiac evaluation in the past and does have a family history of coronary artery disease, mother had four-vessel CABG at the age of 62. Father also had history of heart disease. Patient was evaluated in the emergency department, EKG without acute changes, chest x-ray unremarkable, initial troponin negative. Labs relatively unremarkable. ED provider wishes to admit patient for chest pain under observation. When I saw the patient in the emergency department she is awake, alert, oriented x3. Patient states she still is having mild intermittent heavy chest pain. Patient will be monitored on telemetry floor with cardiology consult and trend troponins. - Past Medical/Surgical History -: Hypertension -: Cholecystectomy Psychosocial/ Personal History: Patient lives at home with her family - Family History Mother -: Heart disease, Other (see notes) (Coronary artery disease with CABG) Father -: Heart disease - Social History Smoking Status: Former smoker Alcohol use: Yes CD- Drugs: No Caffeine use: Yes Place of Residence: Home <Jayy León - Last Filed: 03/23/20 00:30> Date of Service: 03/23/20 - Past Medical/Surgical History Diabetic: No <Garrick Romero - Last Filed: 03/23/20 12:28> Review of Systems 10-point ROS is otherwise unremarkable Cardiovascular: Chest Pain <Jayy León - Last Filed: 03/23/20 00:30> Physical Examination - Physical Exam General: Alert, In no apparent distress HEENT: Atraumatic, PERRLA, Mucous membr. moist/pink, EOMI Neck: Supple, 2+ carotid pulse no bruit, No LAD, Without JVD or thyroid abnormality Respiratory: Clear to auscultation bilaterally, Normal air movement Cardiovascular: Regular rate/rhythm, Normal S1 S2 Gastrointestinal: Normal bowel sounds, No tenderness Musculoskeletal: No tenderness Integumentary: No rashes Neurological: Normal gait, Normal speech, Normal strength at 5/5 x4 extr, Normal tone, Normal affect - Studies Laboratory Data (last 24 hrs) 03/22/20 20:20: WBC 9.6, Hgb 14.4, Hct 42.0, Plt Count 277 03/22/20 20:20: Sodium 140, Potassium 3.8, BUN 7, Creatinine 0.72, Glucose 126 H, Total Bilirubin 0.7, AST 59 H, ALT 50, Alkaline Phosphatase 96 <Jayy León - Last Filed: 03/23/20 00:30> - Studies Laboratory Data (last 24 hrs) 03/22/20 20:20: WBC 9.6, Hgb 14.4, Hct 42.0, Plt Count 277 03/22/20 20:20: Sodium 140, Potassium 3.8, BUN 7, Creatinine 0.72, Glucose 126 H, Total Bilirubin 0.7, AST 59 H, ALT 50, Alkaline Phosphatase 96 <Garrick Romero - Last Filed: 03/23/20 12:28> Assessment and Plan - Plan Assessment Chest pain rule out ACS Hypertension Plan Chest pain rule out ACS: Monitor on telemetry, trend troponins. Cardiology consult in place. Daily aspirin, beta-kilo, statin. DVT prophylaxis Lovenox 40 mg subcutaneous once daily. Appreciate further input from cardiology. Hypertension: Continue home medications. Add beta-kilo. Discharge Plan: Home Plan to discharge in: 24 Hours - Advance Directives Does patient have a Living Will: No Does patient have a Durable POA for Healthcare: No - Code Status/Comfort Care Code Status Assessed: Yes (Full code) Critical Care: No Time Spent Managing Pts Care (In Minutes): 55 <Jayy León - Last Filed: 03/23/20 00:30> - Plan Case discussed in detail with nurse practitioner. Agree with evaluation, assessment and plan of care. Please see discharge orders for more details. <Garrick Romero - Last Filed: 03/23/20 12:28>
[2020-03-23] MEDS ORDERED: MORPHINE 2 MG/ML SYR IV PRN (01:06)
[2020-03-23] MEDS ORDERED: ONDANSETRON 4 MG/2 ML VIAL IV PRN (01:06)
[2020-03-23 03:18] VITALS: BMI 30.7
[2020-03-23 03:41] LABS: Basophils % 0.8 % (0-1.3); Hematocrit 38.1 % (36.0-45.0); Lymphocytes % 38.2 % (15.3-44.8); MPV 8.3 fL (7.6-11.3); RBC Red Blood Cell Count 4.32 M/uL (3.86-4.86)
[2020-03-23 04:00] LABS: Magnesium 2.1 mg/dL (1.8-2.4); Potassium 3.5 mmol/L (3.5-5.1); Thyroid Stimulating Hormone 2.39 uIU/mL (0.360-3.740)
[2020-03-23] MEDS ORDERED: METOPROLOL TAR 25 MG TAB PO SCH (06:00)
[2020-03-23] MEDS ORDERED: POTASSIUM CL SA 10 MEQ TAB PO ONE ×2 (06:05→06:35)
[2020-03-23] MEDS ORDERED: PANTOPRAZOLE 40MG TABLET PO SCH (06:30)
[2020-03-23] MEDS ORDERED: PANTOPRAZOLE 40MG TABLET PO ONE (06:34)
[2020-03-23] MEDS ORDERED: METOPROLOL TAR 25 MG TAB ONE (06:35)
--- NOTE | 2020-03-23 08:44 | P.DS ---
Admission Date: 03/22/20 Discharge Date: 03/23/20 Primary Care Provider: Dr. Trimble Disposition: ROUTINE DISCHARGE Discharge Condition: GOOD Reason for Admission: Chest pain Consultations: Cardiology-Dr. Dent Procedures: CXR: FINDINGS: Portable technique limits examination quality. The lungs are grossly clear. The heart is normal in size. No displaced fractures. IMPRESSION: No acute intrathoracic process suspected Medical Problem List: Chest pain Hypertension Hypertriglyceridemia Depression with anxiety History of chronic pain now on suboxone Obesity, BMI 30.7 Brief History of Present Illness: 54-year-old female with history of hypertension, tobacco abuse with recent cessation presents emergency department for chest pain. Patient reports that she is having heavy chest pain radiating to her back and neck, pain occurred while walking to the restroom and was rated at a 10/10 at its worse. Pain lasted for approximately 25 min. Patient has never had cardiac evaluation in the past and does have a family history of coronary artery disease, mother had four-vessel CABG at the age of 62. Father also had history of heart disease. Patient was evaluated in the emergency department, EKG without acute changes, chest x-ray unremarkable, initial troponin negative. Labs relatively unremarkable. Patient was admitted for further evaluation and treatment. Hospital Course: Patient presented with chest pain. Patient was admitted for further evaluation and treatment. Cardiology was consulted. Cardiac enzymes unremarkable. Chest pain resolved. Blood pressure stable. At discharge patient will continue with aspirin 81 mg daily, metoprolol 25 mg 1 pill twice daily, and fish oil 1000 mg 1 pill twice daily. Recommend follow up with cardiology in 1-2 weeks to follow up her care. Patient will have further cardiac evaluation with cardiology as an outpatient. Patient with hypertension. Patient was given metoprolol for better blood pressure control. This has remained stable. At discharge she will continue with metoprolol 25 mg 1 pill twice daily. Recommend to maintain blood pressure less than 130/80. If blood pressure remains elevated she is to contact her PCP or cardiology for further recommendation. Patient with hypertriglyceridemia. Total triglycerides elevated at 248. LDL 67. Recommend to start fish oil 1000 mg 1 pill twice daily. Recommend to recheck fasting lipid panel in 4-6 weeks to monitor her progress. Patient with history of chronic pain. Patient on suboxone. Continue with pain management. Patient with depression with anxiety. She may continue with her current medications including medication for anxiety and insomnia. Follow up with her PCP to further monitor and address. Vital Signs/Physical Exam: Temp Pulse Resp BP Pulse Ox 99.0 F 88 20 116/89 99 03/23/20 04:00 03/23/20 06:00 03/23/20 04:00 03/23/20 06:00 03/23/20 04:00 General: Alert, In no apparent distress, Oriented x3, Cooperative HEENT: Atraumatic Neck: Supple Respiratory: Clear to auscultation bilaterally, Normal air movement Cardiovascular: Normal pulses, Regular rate/rhythm Gastrointestinal: Normal bowel sounds, Soft and benign, Non-distended, No tenderness, No masses, No rebound, No guarding Musculoskeletal: No erythema, No tenderness, No warmth Integumentary: No tenderness/swelling, No erythema, No warmth, No cyanosis Neurological: Normal speech, Normal strength at 5/5 x4 extr, Normal tone, Normal affect Laboratory Data at Discharge: WBC 8.0 K/uL (4.3-10.9) D 03/23/20 02:57 Hgb 13.1 g/dL (12.0-15.0) 03/23/20 02:57 Hct 38.1 % (36.0-45.0) 03/23/20 02:57 Plt Count 256 K/uL (152-406) 03/23/20 02:57 Sodium 142 mmol/L (136-145) 03/23/20 02:57 Potassium 3.5 mmol/L (3.5-5.1) 03/23/20 02:57 BUN 10 mg/dL (7-18) 03/23/20 02:57 Creatinine 0.79 mg/dL (0.55-1.3) 03/23/20 02:57 Glucose 109 mg/dL (74-106) H 03/23/20 02:57 Magnesium 2.1 mg/dL (1.8-2.4) 03/23/20 02:57 Total Bilirubin 0.7 mg/dL (0.2-1.0) 03/22/20 20:20 AST 59 U/L (15-37) H 03/22/20 20:20 ALT 50 U/L (12-78) 03/22/20 20:20 Alkaline Phosphatase 96 U/L (45-117) 03/22/20 20:20 Troponin I < 0.02 ng/mL (0.0-0.045) 03/23/20 02:57 Triglycerides 248 mg/dL (<150) H 03/23/20 02:57 Cholesterol 167 mg/dL (<200) 03/23/20 02:57 HDL Cholesterol 50 mg/dL (40-60) 03/23/20 02:57 Cholesterol/HDL Ratio 3.34 03/23/20 02:57 Home Medications: Aspirin [Aspirin EC 81 MG] 81 mg PO DAILY #90 tablet. 03/23/20 Buprenorphine HCl/Naloxone HCl [Suboxone 8 mg-2 mg Sl Film] 1 each SL QID 03/23/20 Docosahexanoic AC/Epa [Fish Oil 1,000 MG*] 1,000 mg PO BID #60 cap 03/23/20 LORazepam [Lorazepam] 0.5 mg PO BIDP PRN 03/23/20 Metoprolol Tartrate [Lopressor*] 25 mg PO BID 6AM 6PM #60 tab 03/23/20 Zolpidem Tartrate [Ambien*] 10 mg PO BEDTIME PRN PRN 03/23/20 New Medications: Aspirin [Aspirin EC 81 MG] 81 mg PO DAILY #90 tablet. Docosahexanoic AC/Epa [Fish Oil 1,000 MG*] 1,000 mg PO BID #60 cap Metoprolol Tartrate [Lopressor*] 25 mg PO BID 6AM 6PM #60 tab Patient Discharge Instructions: 1. Recommend follow up with PCP in 1 week to follow up this hospitalization. 2. Patient presented with chest pain. Patient was admitted for further evaluation and treatment. Cardiology was consulted. Cardiac enzymes unremarkable. Chest pain resolved. Blood pressure stable. At discharge patient will continue with aspirin 81 mg daily, metoprolol 25 mg 1 pill twice daily, and fish oil 1000 mg 1 pill twice daily. Recommend follow up with cardiology in 1-2 weeks to follow up her care. Patient will have further cardiac evaluation with cardiology as an outpatient. 3. Patient with hypertension. Patient was given metoprolol for better blood pressure control. This has remained stable. At discharge she will continue with metoprolol 25 mg 1 pill twice daily. Recommend to maintain blood pressure less than 130/80. If blood pressure remains elevated she is to contact her PCP or cardiology for further recommendation. 4. Patient with hypertriglyceridemia. Total triglycerides elevated at 248. LDL 67. Recommend to start fish oil 1000 mg 1 pill twice daily. Recommend to recheck fasting lipid panel in 4-6 weeks to monitor her progress. 5. Patient with history of chronic pain. Patient on suboxone. Continue with pain management. 6. Patient with depression with anxiety. She may continue with her current medications including medication for anxiety and insomnia. Follow up with her PCP to further monitor and address. Diet: AHA Activity: Ad yadi Followup: Jimmie Trimble DO, DO [Primary Care Provider] - Time spent managing pt's care (in minutes): 55
[2020-03-23] MEDS ORDERED: ENOXAPARIN 40 MG/0.4 ML SQ SCH (09:00)
[2020-03-23] MEDS ORDERED: DOCOSAHEXANOIC AC/EPA 1000 MG PO SCH (09:00)
[2020-03-23] MEDS ORDERED: ASPIRIN EC 81 MG TAB PO SCH (09:00)
--- NOTE | 2020-03-23 10:59 | EKG ---
Test Date: 2020-03-22 Test Time: 17:54:06 Digital Computer Systems Analyst: HUBERT MEASUREMENT RESULTS: Intervals: Rate: 72 IA: 156 QRSD: 78 QT: 400 QTc: 438 [place]: P: 54 IA: 156 QRS: 11 T: -14 INTERPRETIVE STATEMENTS: Normal sinus rhythm Cannot rule out Anterior infarct, age undetermined Abnormal ECG Compared to ECG 09/04/2009 14:52:01 Myocardial infarct finding now present ST (T wave) deviation no longer present Possible ischemia no longer present Electronically Signed On 03-23-20 10:56:31 HYDROPRESS OPERATOR by Jose Dent
[2020-03-23 13:39] VITALS: BP 146/75; TEMP 98.1
[2020-03-23] MEDS ORDERED: ATORVASTATIN 40 MG TAB PO SCH (21:00)
--- NOTE | 2020-03-24 09:03 | ECHO ---
HEIGHT: 5 ft 2 in WEIGHT: 168 lb 0 oz DATE OF STUDY: 03/23/[address]: Jose Dent MD 2-DIMENSIONAL: YES M.MODE: YES DOPPLER: YES COLOR FLOW: YES TDS: NO PORTABLE: NO DEFINITY: NO BUBBLE STUDY: NO DIAGNOSIS: CHEST PAIN CARDIAC HISTORY: CATHERIZATION: NO SURGERY: NO PROSTHETIC VALVE: NO PACEMAKER: NO MEASUREMENTS (cm) DIASTOLIC (NORMALS) SYSTOLIC (NORMALS) IVSd 1.0 (0.6-1.2) LA Diam 3.0 (1.9-4.0) LVEF 56% LVIDd 4.5 (3.5-5.7) LVIDs 3.2 (2.0-3.5) %FS 29% LVPWd 1.2 (0.6-1.2) Ao Diam 2.6 (2.0-3.7) 2 DIMENSIONAL ASSESSMENT: RIGHT ATRIUM: NORMAL LEFT ATRIUM: NORMAL RIGHT VENTRICLE: NORMAL LEFT VENTRICLE: NORMAL TRICUSPID VALVE: NORMAL MITRAL VALVE: PULMONIC VALVE: NORMAL AORTIC VALVE: NORMAL PERICARDIAL EFFUSION: NONE AORTIC ROOT: NORMAL LEFT VENTRICULAR WALL MOTION: NORMAL DOPPLER/COLOR FLOW: NORMAL COMMENTS: NORMAL LEFT VENTRICULAR EJECTION FRACTION 55-60%. NORMAL WALL MOTION. TRACE MITRAL REGURGITATION. TECHNOLOGIST: Cheyanne DOMINGUEZ
--- NOTE | 2020-03-27 07:50 | CON ---
Date of Consultation: 03/23/2020 Reason For Consultation: Chest pain. History Of Present Illness: Ms. Magana is a 54-year-old woman with history of hypertension, tobacco use, came in with chest pain that has been constant for few days, radiating to the back. It is not radiating to exertion. Denied any nausea, vomiting, diaphoresis, PND, orthopnea, pedal edema, palpit ation, or syncope. By the time I saw her, she has had a normal chest x-ray. EKG showed possible old inferior VT. The echocardiogram that was done on 03/23/2020 was normal. Her troponin was normal. Allergies: CODEINE. Review of Systems: Negative. Social History: Positive for tobacco use. Family History: Positive for heart disease. Medications: At home include valsartan. Physical Examination: Vital Signs: Stable. Afebrile. HEENT: Negative. Neck: Supple with no bruit. Chest: Clear to auscultation and percussion. Cardiac: Regular rhythm and rate. No murmurs, gallops, or rubs. Abdomen: Benign. Extremities: No clubbing, cyanosis, or edema. Diagnostic Data: As stated earlier. EKG showed possible inferior VT. Impression And Plan: The patient with atypical chest pain, more likely to be related to gastroesopha geal reflux disease. She does have, however, multiple cardiac risk factors including hypertension, f amily history, tobacco use. EKG is abnormal. Echocardiogram is normal. Troponin is negative. She is pain-free now. I would suggest continuing the load of the valsartan. Add proton pump inhibitor. Add a baby aspirin. Recommend tobacco cessation and she can go home whenever it is okay with Dr. Ruiz herrera and I will make an appointment for her to have an outpatient stress test. I think an MPI is sina sonable. NB/MODL Voice ID: [id number] Report ID: [id number]
[2020-03-28 14:57] VITALS: O2SAT 99
== END 2020-03-23 13:37 | disposition home or self-care (01) ==
LOC: ER 17:04 → ERHOLD 22:36 → 4TH 03-23 07:22
PROVIDERS: ADMIT Family Medicine; ATTEND Family Medicine
DX: R07.89 Other chest pain (principal); I10 Essential (primary) hypertension; E78.1 Pure hyperglyceridemia; F41.8 Other specified anxiety disorders; G89.29 Other chronic pain; G47.00 Insomnia, unspecified; E66.9 Obesity, unspecified; Z68.30 Body mass index [BMI] 30.0-30.9, adult; Z87.891 Personal history of nicotine dependence; Z20.828 Contact with and (suspected) exposure to other viral communicable diseases; Z88.6 Allergy status to analgesic agent; Z82.49 Family history of ischemic heart disease and other diseases of the circulatory system
CPT/HCPCS: 93005; 93306; 85025 ×2; 80048 ×2; 36415; 83735; 80061; 80076; 84443; 84484 ×3; 84439; 83880; 71045; 99285; U0002; J1650; G0378 ×2

== ENCOUNTER 2022-05-26 23:52 | Emergency (ER) | payer OTHER ==
[2022-05-27] MEDS ORDERED: KETOROLAC 30 MG/ML INJ ONE (01:24)
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
[2022-05-27 01:42] LABS: Absolute Lymphocytes (CBC) 2.1 K/uL (0.7-4.9); Hematocrit 40.3 % (36.0-45.0); Lymphocytes % 11.4 % (15.3-44.8); MCV 88.1 fL (80-100); MPV 7.1 fL (7.6-11.3); RBC Red Blood Cell Count 4.57 M/uL (3.86-4.86)
[2022-05-27 02:03] LABS: Potassium 3.4 mmol/L (3.5-5.1)
[2022-05-27 02:57] LABS: Protime INR 0.99
[2022-05-27 03:25] VITALS: TEMP 97.6
[2022-05-27 03:42] VITALS: BP 160/97; O2SAT 95
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
== END 2022-05-27 03:13 | disposition short-term general hospital (02) ==
LOC: ER 23:52
DX: S32.020A Wedge compression fracture of second lumbar vertebra, initial encounter for closed fracture (principal); V49.49XA Driver injured in collision with other motor vehicles in traffic accident, initial encounter; I10 Essential (primary) hypertension; Z88.5 Allergy status to narcotic agent
CPT/HCPCS: 85025; 80048; 36415; 86900; 86850; 85610; 82565; 86901; 70450; 72125; 71260; 74177; 96374; 99285; Q9967